=== PATIENT | female | born 1960 | race Caucasian/White ===

== ENCOUNTER 2022-06-16 20:39 | Emergency (ER) | payer BC ==
[2022-06-17] MEDS ORDERED: Boostrix 0.5 ML (Tdap) VIAL (>/=7 yrs of age) ONE (00:28)
[2022-06-17] MEDS ORDERED: Lidocaine 1% (PF) 30 ML VIAL ONE (01:08)
== END 2022-06-17 02:15 | disposition home or self-care (01) ==
LOC: CSHERS 20:39
DX: S61.214A Laceration without foreign body of right ring finger without damage to nail, initial encounter (principal); I10 Essential (primary) hypertension; W25.XXXA Contact with sharp glass, initial encounter; Z23 Encounter for immunization
CPT/HCPCS: 12001; 90471; 90715; J2001

== ENCOUNTER 2024-09-24 15:10 | Outpatient (CLI) | payer BC | END 2024-09-24 15:11 | disposition home or self-care (01) | LOC: CSHCT 15:10 | PROVIDERS: ATTEND Family Medicine | DX: Z12.2 Encounter for screening for malignant neoplasm of respiratory organs (principal); F17.210 Nicotine dependence, cigarettes, uncomplicated; Z80.1 Family history of malignant neoplasm of trachea, bronchus and lung | CPT/HCPCS: 71271 ==